=== PATIENT | female | born 1960 | race Caucasian/White ===

== ENCOUNTER 2021-12-08 08:15 | Emergency (ER) | payer BC ==
[2021-12-08 09:08] VITALS: BP 120/71; PULSE 89; RESP 18; TEMP 97.6
[2021-12-08] MEDS ORDERED: SODIUM CHLORIDE 0.9% 2,000 ML IV STA (10:58)
[2021-12-08 11:37] LABS: Basophils % (A) 0 %; Eosinophils # (A) 0.1 k/uL (0-0.7); Eosinophils % (A) 1 %; HCT 40.8 % (34.0-46.0); HGB 13.7 gm/dL (11.4-16.0); Lymphocytes # (A) 0.4 k/uL (1.0-4.8); Lymphocytes % (A) 3 %; MCH 30.3 pg (25.0-35.0); MCHC 33.5 g/dL (31.0-37.0); MCV 90.6 fL (80.0-100.0); Mean Platelet Volume 7.8; Monocytes # (A) 0.4 k/uL (0-1.0); Monocytes % (A) 3 %; Neutrophils # (A) 11.6 k/uL (1.3-7.7); Neutrophils % (A) 92 %; Platelet Count 194 k/uL (150-450); RDW 12.9 % (11.5-15.5); WBC 12.6 k/uL (3.8-10.6)
[2021-12-08 11:48] LABS: Albumin 4.6 g/dL (3.5-5.0); Calcium 9.2 mg/dL (8.4-10.2); Total Bilirubin 0.8 mg/dL (0.2-1.3); Total Protein 7.7 g/dL (6.3-8.2)
--- NOTE | 2021-12-08 12:48 | ED ---
ENT HPI - General Chief complaint: Dental/Oral Stated complaint: dental pain, facial swelling Time Seen by Provider: 12/08/21 10:38 Source: patient Mode of arrival: ambulatory Limitations: no limitations - History of Present Illness Initial comments: Patient is a 61-year-old female who presents for evaluation of cheek swelling. Patient states she had a root canal done yesterday on right upper tooth. Patient states she was sent home with amoxicillin has been taking the medication as directed. Patient states she woke up this morning with cheek swelling. States there is minimal pain, the pain has improved significantly since yesterday night. Patient states she did feel lightheaded this morning which in combination with the cheek swelling concern her. Patient does note that her mother this morning which has caused sinus and anxiety. Denies fever, chills, shortness of breath, trouble swallowing, and chest pain. - Related Data Allergies Allergy/AdvReac Type Severity Reaction Status Date / Time prochlorperazine Allergy Unknown Verified 12/08/21 09:08 [From Compazine] Childhood Review of Systems ROS Statement: Those systems with pertinent positive or pertinent negative responses have been documented in the HPI. ROS Other: All systems not noted in ROS Statement are negative. Past Medical History Past Medical History: Hyperlipidemia, Hypertension History of Any Multi-Drug Resistant Organisms: None Reported Past Surgical History: Tonsillectomy Additional Past Surgical History / Comment(s): fisure repair Past Psychological History: No Psychological Hx Reported Smoking Status: Never smoker Past Alcohol Use History: Occasional Past Drug Use History: None Reported General Exam Limitations: no limitations General appearance: alert, in no apparent distress Head exam: Present: atraumatic, normocephalic, normal inspection Eye exam: Present: normal appearance, PERRL, EOMI. Absent: scleral icterus, conjunctival injection, periorbital swelling ENT exam: Present: normal oropharynx (No erythema, swelling, or other abnormality of the gingiva) Neck exam: Present: normal inspection, full ROM Respiratory exam: Present: normal lung sounds bilaterally. Absent: respiratory distress, wheezes, rales, rhonchi, stridor Cardiovascular Exam: Present: regular rate, normal rhythm, normal heart sounds. Absent: systolic murmur, diastolic murmur, rubs, gallop, clicks Neurological exam: Present: alert, oriented X3, CN II-XII intact Psychiatric exam: Present: normal affect, normal mood Skin exam: Present: warm, dry, intact, normal color. Absent: rash Course Vital Signs 12/08/21 09:00 Temperature 97.6 F Pulse Rate 89 Respiratory 18 Rate Blood Pressure 120/71 O2 Sat by Pulse 97 Oximetry Medical Decision Making - Medical Decision Making This is a 61-year-old female who presents with cheek swelling after dental procedure as well as lightheadedness. Thorough history and examination were per formed. Patient is well-appearing and in no apparent distress. She has a very minimal swelling of the right cheek without erythema or tenderness. This does not appear to be cellulitic. The gingiva are normal in appearance without evidence of infection. Patient is very concerned that she felt lightheaded this morning however states it resolved. Denies history of cardiac disease. I will obtain laboratory studies and EKG. EKG shows normal sinus rhythm. Laboratory studies significant for leukocytosis at 12.6, possibly due to stress reaction. Again besides the minimal swelling of the right cheek there are no other indicators of cellulitis. Patient to be discharged with instruction to continue her amoxicillin. We discussed strict return parameters. Patient verbalizes understanding and is agreeable to this plan. Dr. Huff is my attending. - Lab Data Result diagrams: 12/08/21 11:15 12/08/21 11:15 Lab Results 12/08/21 12/08/21 Range/Units 11:15 11:15 WBC 12.6 H (3.8-10.6) k/uL RBC 4.50 (3.80-5.40) m/uL Hgb 13.7 (11.4-16.0) gm/dL Hct 40.8 (34.0-46.0) % MCV 90.6 (80.0-100.0) fL MCH 30.3 (25.0-35.0) pg MCHC 33.5 (31.0-37.0) g/dL RDW 12.9 (11.5-15.5) % Plt Count 194 (150-450) k/uL MPV 7.8 Neutrophils % 92 % Lymphocytes % 3 % Monocytes % 3 % Eosinophils % 1 % Basophils % 0 % Neutrophils # 11.6 H (1.3-7.7) k/uL Lymphocytes # 0.4 L (1.0-4.8) k/uL Monocytes # 0.4 (0-1.0) k/uL Eosinophils # 0.1 (0-0.7) k/uL Basophils # 0.0 (0-0.2) k/uL Sodium 135 L (137-145) mmol/L Potassium 4.0 (3.5-5.1) mmol/L Chloride 101 (98-107) mmol/L Carbon Dioxide 24 (22-30) mmol/L Anion Gap 10 mmol/L BUN 13 (7-17) mg/dL Creatinine 0.99 (0.52-1.04) mg/dL Est GFR (CKD-EPI)AfAm 70 (>60 ml/min/1.73 sqM) Est GFR (CKD-EPI)NonAf 61 (>60 ml/min/1.73 sqM) Glucose 111 H (74-99) mg/dL Calcium 9.2 (8.4-10.2) mg/dL Total Bilirubin 0.8 (0.2-1.3) mg/dL AST 34 (14-36) U/L ALT 19 (4-34) U/L Alkaline Phosphatase 52 (38-126) U/L Total Protein 7.7 (6.3-8.2) g/dL Albumin 4.6 (3.5-5.0) g/dL Disposition Clinical Impression: Pain, dental, Swollen cheek Disposition: HOME SELF-CARE Condition: Good Instructions (If sedation given, give patient instructions): Mouth Care (ED) Additional Instructions: Please continue to take amoxicillin that your dentist prescribed you. Follow-up with primary care provider in one to 2 days. Return to the emergency department if you experience new, concerning, or worsening symptoms Is patient prescribed a controlled substance at d/c from ED?: No Referrals: Tomas Fong MD [Primary Care Provider] - 1-2 days Time of Disposition: 12:48
== END 2021-12-08 13:07 | disposition home or self-care (01) ==
LOC: EC 08:15
DX: R22.0 Localized swelling, mass and lump, head (principal); K08.89 Other specified disorders of teeth and supporting structures; I10 Essential (primary) hypertension; Z88.8 Allergy status to other drugs, medicaments and biological substances
CPT/HCPCS: 36415; 80053; 85025; 93005; 96360; 96361; 99283